=== PATIENT | female | born 1955 | race Caucasian/White ===

== ENCOUNTER 2024-05-04 07:51 | Outpatient (AMB) | payer OTHER, SELFPAY ==
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
[2024-05-04 08:10] VITALS: BP 160/77; PULSE 67; RESP 18; TEMP 36.3; O2SAT 93; BMI 24.6
== END 2024-05-04 08:38 | disposition home or self-care (01) ==
PROVIDERS: Supervising Provider Orthopaedic Surgery Adult Reconstructive Orthopaedic Surgery; Visit Provider Orthopaedic Surgery Adult Reconstructive Orthopaedic Surgery
DX: M17.12 Unilateral primary osteoarthritis, left knee (principal); M25.562 Pain in left knee
CPT/HCPCS: 99204; G0463

== ENCOUNTER → 2024-05-04 | Outpatient (CLI) | payer MEDICARE, MEDICAID, SELFPAY ==
--- NOTE | 2024-05-04 08:56 | XR_ITS ---
Examination: Bilateral knees 2 views Right lateral knee left lateral knee 2 views Right axial knee left axial knee 2 views TECHNIQUE: Bilateral AP knees standing single view, bilateral PA knees standing single view 30 degrees flexion Staining right lateral knee left lateral knee Right axial knee left axial knee total 6 views Exam date and time: May 04, 2024 0911 hours INDICATIONS: Bilateral knee pain months. FINDINGS: Bilateral moderate narrowing medial lateral joint spaces Significant osteopenia Moderate bilateral osteoarthritis patellofemoral joints No opaque foreign bodies Soft tissue vascular calcification No fractures IMPRESSION: Bilateral moderate tricompartment osteoarthritis,.
== END | disposition home or self-care (01) ==
PROVIDERS: PCP Nurse Practitioner Family; Referring Provider Orthopaedic Surgery Adult Reconstructive Orthopaedic Surgery; Visit Provider Orthopaedic Surgery Adult Reconstructive Orthopaedic Surgery
DX: M17.0 Bilateral primary osteoarthritis of knee (principal)
CPT/HCPCS: 73564

== ENCOUNTER 2024-05-18 11:33 | Outpatient (AMB) | payer OTHER, SELFPAY ==
--- NOTE | 2024-05-18 11:23 | ORTHONT_ITS ---
Med/Allergies Allergies & Medications Allergies codeine Allergy (Verified 05/18/24 11:23) ibuprofen [From Advil] Allergy (Verified 05/18/24 11:23) rash Sulfa (Sulfonamide Antibiotics) Allergy (Verified 05/18/24 11:23) rash Medication Reconciliation atorvastatin 20 mg tablet 20 mg PO QDAY 07/04/17 [History Confirmed 05/18/24] hydrochlorothiazide 25 mg tablet 25 mg PO QDAY 07/04/17 [History Confirmed 05/18/24] linagliptin 5 mg tablet (Tradjenta) 5 mg PO QAM 07/04/17 [History Confirmed 04/20 06/11] lisinopril 20 mg tablet 20 mg PO QDAY 07/04/17 [History Confirmed 05/18/24] metformin 1,000 mg tablet 1,000 mg PO BID 07/04/17 [History Confirmed 05/18/24] verapamil 180 mg tablet,extended release 180 mg PO QDAY 07/04/17 [History Confirmed 05/18/24] sitagliptin phosphate 100 mg tablet (Januvia) 100 mg PO QDAY 09/16/17 [History Confirmed 05/18/24] trazodone 50 mg tablet 50 mg PO QHS PRN Pain 09/16/17 [History Confirmed 05/18/24] gabapentin 300 mg capsule (Neurontin) 300 mg PO QDAY 11/25/17 [History Confirmed 05/18/24] tamsulosin 0.4 mg capsule (Flomax) 0.4 mg PO QDAY #30 caps 03/20/18 [Rx Confirmed 05/18/24] Subjective Visit Visit for: follow up visit, knee (BILATERAL) and x-rays (RESULTS) Immunization / Flu Flu Vaccine in the Last 12 Months: Yes Flu Vaccine Exclusion Criteria: Already Received History of Present Illness Chief complaint: bialteral knee pain Patient is a 68-year-old female with left greater than right knee pain. This has been ongoing for 3 months. She has not had any injections. Her hemoglobin A1c is 8.6 and her sugars are not controlled. She she is allergic to anti- inflammatories and had a reaction with ibuprofen. She is taking a muscle relaxer. She is using a cane because of her pain. Pain Pain level (0-10): 9 Pain duration: WITH MOVEMENT Pain location: inside (medial) Pain quality: sharp, aching and burning Pain timing: night, increases with activity and stairs Associated signs & symptoms: weakness Ambulatory data Ambulatory device: cane Treatments Improvement with previous injections: No Improvement with PT: No Improvement with NSAIDS: no Review of Systems Review of Systems: All systems negative unless otherwise noted in HPI. Assessment and Plan Problem List (1) Arthritis of left knee: Status: Acute Plan: Patient is a 68-year-old female with a left knee pain and left knee arthritis of mild severity. We discussed nonoperative and operative options. X-rays demonstrate moderate arthritis of both knees I would likely start with conservative treatment including anti-inflammatories and injections. Her A1c is a little uncontrolled so I am hesitant to do an injections. When we get her hemoglobin A1c under control we will do bilateral knee injections at the next visit Advanced Care Planning Discussion Advance care planning discussed with:: patient Office Procedures GNS Level of Care Nursing/Assessment Patient Status: Established Patient Nursing Assessment/Reassesment: Medication Reconciliation, Update PMH in EMR and Vital Signs Coordination of Care: Complex Care and Chronic Disease 1-5, Education Complex Pt/Fam, Consent,records obtained, informed consent, 1 Ins Authorization, Results/Orders obtained and Staff clarify orders Special Needs: Language special needs Established Patient Charge Established Patient Point Assignment: 110 Telehealth Telemed Phone/Video with patient at home & Dr,PA,RESEARCH LEADER: Yes
== END 2024-05-18 11:38 | disposition home or self-care (01) ==
LOC: HODSRG 11:33
PROVIDERS: Supervising Provider Orthopaedic Surgery Adult Reconstructive Orthopaedic Surgery; Visit Provider Orthopaedic Surgery Adult Reconstructive Orthopaedic Surgery
DX: M17.12 Unilateral primary osteoarthritis, left knee (principal); M25.562 Pain in left knee; M25.561 Pain in right knee
CPT/HCPCS: 99212; G0463

== ENCOUNTER 2024-08-30 14:09 | Outpatient (AMB) | payer MEDICARE, SELFPAY ==
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
[2024-08-30 14:56] VITALS: BP 162/76; PULSE 66; RESP 19; TEMP 36.6; O2SAT 96; BMI 24.5
== END 2024-08-30 15:21 | disposition home or self-care (01) ==
LOC: HODSRG 14:09
PROVIDERS: PCP Nurse Practitioner Family; Referring Provider Nurse Practitioner Family; Supervising Provider Orthopaedic Surgery Adult Reconstructive Orthopaedic Surgery; Visit Provider Orthopaedic Surgery Adult Reconstructive Orthopaedic Surgery
DX: M17.0 Bilateral primary osteoarthritis of knee (principal); M71.22 Synovial cyst of popliteal space [Baker], left knee; I10 Essential (primary) hypertension; K21.9 Gastro-esophageal reflux disease without esophagitis; E11.9 Type 2 diabetes mellitus without complications
CPT/HCPCS: 20610; 99213; J3301; J3490; G0463

== ENCOUNTER 2024-11-30 12:58 | Outpatient (AMB) | payer MEDICARE, SELFPAY ==
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
[2024-11-30 13:18] VITALS: BP 153/72; PULSE 76; RESP 18; TEMP 36.8; O2SAT 97; BMI 25.5
== END 2024-11-30 13:32 | disposition home or self-care (01) ==
LOC: HODSRG 12:58
PROVIDERS: PCP Nurse Practitioner Family; Referring Provider Nurse Practitioner Family; Supervising Provider Orthopaedic Surgery Adult Reconstructive Orthopaedic Surgery; Visit Provider Orthopaedic Surgery Adult Reconstructive Orthopaedic Surgery
DX: M17.0 Bilateral primary osteoarthritis of knee (principal); M71.22 Synovial cyst of popliteal space [Baker], left knee; M25.562 Pain in left knee; M25.561 Pain in right knee
CPT/HCPCS: 20610; 99213; J3301; J3490; G0463